=== PATIENT | female | born 1950 | race Caucasian/White ===

== ENCOUNTER 2019-06-24 10:43 | Outpatient (CLI) | payer MEDICARE, BC ==
--- NOTE | 2019-06-24 11:02 | RAD ---
XR Knee Lt 3 View HISTORY: Left knee pain FINDINGS: No fracture or dislocation is identified. Mild degenerative changes are present.
== END 2019-06-24 10:44 | disposition home or self-care (01) ==
LOC: BICRAD 10:43
PROVIDERS: ATTEND Family Medicine
DX: S83.92XA Sprain of unspecified site of left knee, initial encounter (principal)